=== PATIENT | male | born 2000 | race Two or more races ===

== ENCOUNTER 2021-09-23 13:44 | Emergency (ER) | payer SELFPAY ==
[~2021-09-23] VITALS: Ht 175.3 cm; Wt 68.0 kg
[2021-09-23 17:27] VITALS: BP 135/87
== END 2021-09-23 17:27 | disposition home or self-care (01) ==
LOC: ER 13:44
DX: R10.84 Generalized abdominal pain (principal)
CPT/HCPCS: 74176